=== PATIENT | female | born 1955 | race Caucasian/White ===

== ENCOUNTER → 2023-01-05 | Outpatient (CLI) | payer MEDICARE, OTHER, SELFPAY ==
[2023-01-05 11:33] LABS: Absolute Lymphocyte Count 1.18 X10^3/uL (0.83-4.51); Absolute Neutrophil Count 3.6 X10^3/uL (2.0-7.7); Basophil# 0.04 X10^3/uL; Basophil% 0.7 % (0-1); Eosinophil# 0.12 X10^3/uL; Eosinophils% 2.2 % (0-5); Hemoglobin 13.9 g/dL (12.0-15.0); Lymphocyte # 1.18 X10^3/ul (0.83-4.51); Lymphocyte % 21.5 % (19-41); Mean Corp Hgb Conc 30.9 g/dL (32-36); Mean Corpuscular Hgb 28.6 pg (27.0-32.0); Mean Corpuscular Volume 92.6 fL (81-99); Mean Platelet Vol. 12.9 fl (6.2-12.0); Monocyte# 0.54 X10^3/uL; Monocyte% 9.9 % (0-10); NRBC Flagged by Analyzer 0.4 % (0-5); Neutrophil # 3.58 X10^3/uL (2.7-7.7); Neutrophil % 65.3 % (47-70); Platelet Count 157 K/mm3 (150-450); RBC Distribution Width CV 12.2 % (11.6-14.6); RBC Distribution Width SD 41.6 fl (35.1-43.9); Red Blood Count 4.86 M/mm3 (4.2-5.4); White Blood Count 5.5 K/mm3 (4.4-11.0)
[2023-01-05 11:58] LABS: Estradiol 13.6 pg/mL; Luteinizing Hormone 26.3 mIU/mL
== END | disposition home or self-care (01) ==
LOC: WOBLAB 09:49
PROVIDERS: Visit Provider Obstetrics & Gynecology
DX: N95.0 Postmenopausal bleeding (principal)
CPT/HCPCS: 36415; 82670; 83001; 83002; 85025

== ENCOUNTER → 2023-01-06 | Outpatient (CLI) | payer MEDICARE, OTHER, SELFPAY ==
--- NOTE | 2023-01-06 | EMB_PTH ---
PATIENT: SAMIA LUGO LOC: [facility] U#:[id number] AGE/SX: 67/F ROOM: RE01/06/[address]: Dr. Mariano Hunt MD : [id number] BED: DIS: 01/06/2023 SPEC #: [id number] RECD: 01/06/23 12:15 STATUS: JAYDEN LUPE #: [id number] EMELYN: 01/06/23 00:[address]: Mariano Hunt DEPT: SURGICAL PATHOLOGY RECD BY: Jacky Dallas Tissues: Endometrium, NOS Procedures: Surgery Specimen Level IV HEADER OPERATION: Endometrial biopsy PRE-OP DIAGNOSIS: Postmenopausal bleeding N95.0 TISSUE SUBMITTED: Endometrial biopsy MICROSCOPIC DIAGNOSIS Endometrium, biopsy: Strips of benign superficial glandular mucosa. Benign epithelial cyst. AM:anette 01/07/2023 MICROSCOPIC DESCRIPTION Slides are reviewed. GROSS DESCRIPTION Received in fixative is one container labeled with the patient's name and designated endometrial biopsy. The specimen consists of multiple minute fragments of light garcia soft tissue that in aggregate measure 1.5 x 0.5 x <0.1 cm. The specimen is totally submitted in one cassette. / AM:anette 01/06/2023 TC:5 [facility]: [id number]
== END | disposition home or self-care (01) ==
LOC: LABSPEC 11:04
PROVIDERS: Visit Provider Obstetrics & Gynecology
DX: N95.0 Postmenopausal bleeding (principal); L72.0 Epidermal cyst
CPT/HCPCS: 88305